=== PATIENT | female | born 1950 | race Caucasian/White ===

== ENCOUNTER 2019-01-08 11:32 | Inpatient (IN) | payer MEDICARE, MEDICAID ==
[~2019-01-08] VITALS: Ht 160 cm; Wt 79.3 kg
[2019-01-08] MEDS ORDERED: ALBUTEROL/IPRATROPIUM 2.5MG/0.5MG, 3 ML ONE (11:47)
[2019-01-08] MEDS ORDERED: methylPREDNISolone SOD SUCC 125 MG/2 ML ONE (12:25)
[2019-01-08] MEDS ORDERED: AZITHROMYCIN 500 MG in SODIUM CHLORIDE 0.9% 250 ML IV ONE (12:30)
[2019-01-08] MEDS ORDERED: SODIUM CHLORIDE 0.9% 1,000ML IVBOLUS ONE (12:30)
[2019-01-08] MEDS ORDERED: ALBUTEROL SULFATE 2.5 MG/3 ML NPPB ONE (12:30)
[2019-01-08] MEDS ORDERED: methylPREDNISolone SOD SUCC 125 MG/2 ML IVP ONE (12:30)
[2019-01-08] MEDS ORDERED: SODIUM CHLORIDE FLUSH 10ML SYR IVF ONE (12:30)
[2019-01-08 12:55] LABS: RAPID INFLUENZA A POSITIVE (Negative); RAPID INFLUENZA B Negative (Negative)
[2019-01-08 13:00] LABS: ALANINE AMINOTRANSFERASE 42 U/L (12-78); ALBUMIN 3.4 g/dL (3.4-5.0); ANION GAP 9 mmol/L (5-15); CALCIUM 8.6 mg/dL (8.5-10.1); CHLORIDE 103 mmol/L (98-107)
[2019-01-08 13:02] LABS: ALKALINE PHOSPHATASE 91 U/L (45-117); BILIRUBIN,TOTAL 0.4 mg/dL (0.2-1.0); TOTAL PROTEIN 7.9 g/dL (6.4-8.2)
[2019-01-08] MEDS ORDERED: ACETAMINOPHEN 500 MG TABLET ONE (13:11)
[2019-01-08 13:17] LABS: BASOPHILS # (AUTO) 0.02 x10^3/uL (0-0.1); BASOPHILS % (AUTO) 1 % (0-1); EOSINOPHILS % (AUTO) 0 % (1-7); LYMPHOCYTES % (AUTO) 16 % (22-44); MD SCAN; MEAN CORPUSCULAR HGB CONC 33.9 g/dL (32.4-35.8); MEAN CORPUSCULAR VOLUME 91.3 fL (80-100); MEAN PLATELET VOLUME 8.9 fL (7.4-10.4); MONOCYTES # (AUTO) 0.54 x10^3/uL (0.2-0.8); MONOCYTES % (AUTO) 11 % (2-9); NEUTROPHILS # (AUTO) 3.71 x10^3/uL (1.8-6.8); NEUTROPHILS % (AUTO) 73 % (42-75); PLATELET COUNT 271 x10^3/uL (130-400); RED BLOOD COUNT 4.93 x10^6/uL (3.82-5.3); RED CELL DISTRIBUTION WIDTH 14.1 % (9.6-15.2)
[2019-01-08] MEDS ORDERED: ALBU1.25 NEB (13:21)
[2019-01-08] MEDS ORDERED: BUDE10.22 INH (13:23)
[2019-01-08] MEDS ORDERED: ACETAMINOPHEN 500 MG TABLET PO ONE (13:30)
[2019-01-08] MEDS ORDERED: morphine SULFATE 10 MG/ML, 1ML IVPush PRN (16:30)
[2019-01-08] MEDS ORDERED: hydrALAzine 20 MG/ML, 1ML IVPush PRN (16:30)
[2019-01-08] MEDS ORDERED: POLYETHYLENE GLYCOL 17 GM PACKET PO PRN (16:30)
[2019-01-08] MEDS ORDERED: PROMETHAZINE 25 MG/ML, 1ML IM PRN (16:30)
[2019-01-08] MEDS ORDERED: ONDANSETRON ODT 4 MG PO PRN (16:30)
[2019-01-08] MEDS ORDERED: DOCUSATE 100 MG CAPSULE PO PRN (16:30)
[2019-01-08] MEDS ORDERED: BISACODYL 10 MG SUPP PR PRN (16:30)
[2019-01-08] MEDS ORDERED: GABAPENTIN 300 MG CAPSULE PO PRN (16:30)
[2019-01-08] MEDS ORDERED: ONDANSETRON 2MG/ML, 2ML IVPush PRN (16:30)
[2019-01-08] MEDS: NICOTINE 7 MG/24 HR PATCH.TD24 TD SCH (16:30)
[2019-01-08 16:49] VITALS: BP 107/73
[2019-01-08 17:09] LABS: FREE T4 (FREE THYROXINE) 1.43 ng/dL (0.76-1.46); THYROID STIMULATING HORMONE 0.516 mIU/L (0.358-3.740)
[2019-01-08] MEDS: HEPARIN 5,000 UNITS/ML, 1ML SQ SCH (17:24)
[2019-01-08] MEDS: methylPREDNISolone SOD SUCC 125 MG/2 ML IVPush SCH ×2 (17:24→22:32)
[2019-01-08] MEDS: SODIUM CHLORIDE 0.9% 1,000 ML IV SCH (17:24)
[2019-01-08 17:54] VITALS: BP 107/73
[2019-01-08 19:00] VITALS: BP 108/53
[2019-01-08] MEDS: ALBUTEROL/IPRATROPIUM 2.5MG/0.5MG, 3 ML NPPB SCH (19:05)
[2019-01-08 20:07] LABS: CLOSTRIDIUM DIFFICILE ANTIGEN NEGATIVE; CLOSTRIDIUM DIFFICILE TOXIN NEGATIVE (Negative)
[2019-01-09 00:58] VITALS: BP 119/66
[2019-01-09] MEDS: HEPARIN 5,000 UNITS/ML, 1ML SQ SCH ×3 (01:31→16:54)
[2019-01-09] MEDS: ALBUTEROL/IPRATROPIUM 2.5MG/0.5MG, 3 ML NPPB SCH ×5 (02:59→18:38)
[2019-01-09] MEDS: SODIUM CHLORIDE 0.9% 1,000 ML IV SCH (03:32)
[2019-01-09] MEDS: methylPREDNISolone SOD SUCC 125 MG/2 ML IVPush SCH ×4 (03:32→22:59)
[2019-01-09 06:01] LABS: BASOPHILS # (AUTO) 0.01 x10^3/uL (0-0.1); BASOPHILS % (AUTO) 0 % (0-1); EOSINOPHILS % (AUTO) 0 % (1-7); LYMPHOCYTES # (AUTO) 0.67 x10^3/uL (1-3.4); LYMPHOCYTES % (AUTO) 18 % (22-44); MD NO; MEAN CORPUSCULAR HGB CONC 32.8 g/dL (32.4-35.8); MEAN CORPUSCULAR VOLUME 91.5 fL (80-100); MEAN PLATELET VOLUME 9.1 fL (7.4-10.4); MONOCYTES # (AUTO) 0.25 x10^3/uL (0.2-0.8); MONOCYTES % (AUTO) 7 % (2-9); NEUTROPHILS # (AUTO) 2.85 x10^3/uL (1.8-6.8); NEUTROPHILS % (AUTO) 75 % (42-75); PLATELET COUNT 247 x10^3/uL (130-400); RED BLOOD COUNT 4.33 x10^6/uL (3.82-5.3); RED CELL DISTRIBUTION WIDTH 14.2 % (9.6-15.2)
[2019-01-09 06:03] LABS: ALBUMIN 2.9 g/dL (3.4-5.0); ANION GAP 7 mmol/L (5-15); CALCIUM 8.1 mg/dL (8.5-10.1); CHLORIDE 111 mmol/L (98-107)
[2019-01-09 06:07] LABS: ALANINE AMINOTRANSFERASE 36 U/L (12-78); ALKALINE PHOSPHATASE 72 U/L (45-117); BILIRUBIN,TOTAL 0.4 mg/dL (0.2-1.0); CHOL/HDL RATIO 3.2; CHOLESTEROL, TOTAL 133 mg/dL (140-239); CREATININE 0.47 mg/dL (0.55-1.02); HDL CHOL % 31 % (28-40); HDL CHOLESTEROL (DIRECT) 41 mg/dL (40-60); LDL CHOLESTEROL,CALCULATED 78 mg/dL (54-169); LDL/HDL RATIO 1.9 (0.5-3.0); TOTAL PROTEIN 6.6 g/dL (6.4-8.2); TRIGLYCERIDES 71 mg/dL (50-200); VLDL CHOLESTEROL 14 mg/dL (0-25)
[2019-01-09 07:29] VITALS: BP 123/69
[2019-01-09 13:27] VITALS: BP 126/72
[2019-01-09 14:03] VITALS: BP 104/62
[2019-01-09] MEDS: NICOTINE 7 MG/24 HR PATCH.TD24 TD SCH (16:14)
[2019-01-09 18:54] VITALS: BP 111/67
[2019-01-09] MEDS: TEMAZEPAM 15 MG CAPSULE PO PRN (22:59)
[2019-01-10 01:03] VITALS: BP 114/75
[2019-01-10] MEDS: HEPARIN 5,000 UNITS/ML, 1ML SQ SCH ×3 (05:02→21:00)
[2019-01-10] MEDS: methylPREDNISolone SOD SUCC 125 MG/2 ML IVPush SCH ×4 (05:02→22:14)
[2019-01-10] MEDS: ALBUTEROL/IPRATROPIUM 2.5MG/0.5MG, 3 ML NPPB SCH ×4 (06:30→20:50)
[2019-01-10 07:16] VITALS: BP 101/57
[2019-01-10] MEDS: OSELTAMIVIR 75 MG CAPSULE PO SCH ×2 (10:22→20:59)
[2019-01-10] MEDS: DOXYCYCLINE 100MG TABLET PO SCH ×2 (10:22→20:59)
[2019-01-10 14:00] VITALS: BP 126/70
[2019-01-10] MEDS ORDERED: OMNIPAQUE 350 MG/ML, 100ML BOTTLE ONE (15:11)
[2019-01-10] MEDS: NICOTINE 7 MG/24 HR PATCH.TD24 TD SCH (16:08)
[2019-01-10 18:33] VITALS: BP 120/72
[2019-01-10] MEDS: TEMAZEPAM 15 MG CAPSULE PO PRN (22:15)
[2019-01-11 00:35] VITALS: BP 128/67
[2019-01-11] MEDS: HEPARIN 5,000 UNITS/ML, 1ML SQ SCH ×3 (05:08→20:14)
[2019-01-11] MEDS: methylPREDNISolone SOD SUCC 125 MG/2 ML IVPush SCH ×4 (05:08→23:47)
[2019-01-11] MEDS: ALBUTEROL/IPRATROPIUM 2.5MG/0.5MG, 3 ML NPPB SCH ×4 (06:45→21:00)
[2019-01-11 07:13] VITALS: BP 118/71
[2019-01-11] MEDS: DOXYCYCLINE 100MG TABLET PO SCH (08:39)
[2019-01-11] MEDS: OSELTAMIVIR 75 MG CAPSULE PO SCH ×2 (08:39→20:14)
[2019-01-11 13:20] VITALS: BP 123/68
[2019-01-11] MEDS: GUAIFENESIN ER 600 MG TABLET PO SCH (13:30)
[2019-01-11] MEDS: CEFTRIAXONE PMX 2GM/50ML 50 ML IV SCH (14:45)
[2019-01-11 15:20] LABS: CULTURE INDICATED? YES; MICROSCOPIC INDICATED
[2019-01-11] MEDS: NICOTINE 7 MG/24 HR PATCH.TD24 TD SCH (16:30)
[2019-01-11 19:25] VITALS: BP 140/70
[2019-01-11] MEDS: ACETAMINOPHEN 325 MG TABLET PO PRN (20:14)
[2019-01-11] MEDS: TEMAZEPAM 15 MG CAPSULE PO PRN (22:13)
[2019-01-12 01:12] VITALS: BP 146/79
[2019-01-12] MEDS: GUAIFENESIN ER 600 MG TABLET PO SCH ×2 (01:30→14:06)
[2019-01-12] MEDS: HEPARIN 5,000 UNITS/ML, 1ML SQ SCH ×3 (05:11→22:12)
[2019-01-12] MEDS: methylPREDNISolone SOD SUCC 125 MG/2 ML IVPush SCH ×4 (05:11→22:12)
[2019-01-12] MEDS: ALBUTEROL/IPRATROPIUM 2.5MG/0.5MG, 3 ML NPPB SCH (06:33)
[2019-01-12 08:36] VITALS: BP 140/76
[2019-01-12] MEDS: AZITHROMYCIN 500 MG TABLET PO SCH (09:49)
[2019-01-12] MEDS: OSELTAMIVIR 75 MG CAPSULE PO SCH ×2 (09:49→19:56)
[2019-01-12] MEDS ORDERED: ALBUTEROL/IPRATROPIUM 2.5MG/0.5MG, 3 ML NPPB PRN (10:30)
[2019-01-12] MEDS ORDERED: PRED5TAB PO (11:11)
[2019-01-12] MEDS ORDERED: OSEL75CA PO (11:11)
[2019-01-12] MEDS ORDERED: CEFD300C37 PO (11:11)
[2019-01-12] MEDS ORDERED: IPRA3AMP30 NPPB (11:11)
[2019-01-12] MEDS ORDERED: GUAI600T31 PO (11:11)
[2019-01-12] MEDS ORDERED: AZIT500T5 PO (11:11)
[2019-01-12] MEDS: ACETAMINOPHEN 325 MG TABLET PO PRN (12:20)
[2019-01-12] MEDS: CEFTRIAXONE PMX 2GM/50ML 50 ML IV SCH (14:06)
[2019-01-12 14:21] VITALS: BP 138/73
[2019-01-12] MEDS: NICOTINE 7 MG/24 HR PATCH.TD24 TD SCH (16:30)
[2019-01-12 20:28] VITALS: BP 136/72
[2019-01-12] MEDS: TEMAZEPAM 15 MG CAPSULE PO PRN (22:12)
[2019-01-13] MEDS: GUAIFENESIN ER 600 MG TABLET PO SCH ×2 (01:39→13:07)
[2019-01-13 02:33] VITALS: BP 120/72
[2019-01-13] MEDS: methylPREDNISolone SOD SUCC 125 MG/2 ML IVPush SCH ×2 (05:58→12:48)
[2019-01-13] MEDS: HEPARIN 5,000 UNITS/ML, 1ML SQ SCH ×2 (05:58→14:00)
[2019-01-13 06:59] VITALS: BP 124/75
[2019-01-13] MEDS: AZITHROMYCIN 500 MG TABLET PO SCH (09:00)
[2019-01-13] MEDS: OSELTAMIVIR 75 MG CAPSULE PO SCH (12:48)
[2019-01-13] MEDS: CEFTRIAXONE PMX 2GM/50ML 50 ML IV SCH (14:00)
== END 2019-01-13 15:18 | disposition home or self-care (01) | DRG 871 ==
LOC: ED 12:59 → EDIP 13:14 → 4EST 15:55
PROVIDERS: ADMIT Internal Medicine; ATTEND Internal Medicine
DX: A41.9 Sepsis, unspecified organism (principal); J10.00 Influenza due to other identified influenza virus with unspecified type of pneumonia; J96.01 Acute respiratory failure with hypoxia; J44.1 Chronic obstructive pulmonary disease with (acute) exacerbation; J44.0 Chronic obstructive pulmonary disease with (acute) lower respiratory infection; N13.2 Hydronephrosis with renal and ureteral calculous obstruction; T17.890A Other foreign object in other parts of respiratory tract causing asphyxiation, initial encounter; E86.0 Dehydration; F17.200 Nicotine dependence, unspecified, uncomplicated; R65.20 Severe sepsis without septic shock; X58.XXXA Exposure to other specified factors, initial encounter; Y93.89 Activity, other specified; Y92.89 Other specified places as the place of occurrence of the external cause; Z99.81 Dependence on supplemental oxygen; Z88.2 Allergy status to sulfonamides
CPT/HCPCS: 36415; 71045; 71275; 80053; 80061; 81001; 83605; 83735; 84439; 84443; 85025; 87040; 87070; 87086; 87205; 87324; 87400; 93005; 93306; 94640; 96365; 96375; 99291; G0378; J0456; J0696; J1644; J7613; J7620; Q9967; J2930; J7030; J7050